=== PATIENT | female | born 1930 | race Asian ===

== ENCOUNTER 2018-03-13 08:24 | Day surgery (SDC) | payer MEDICARE, MEDICAID ==
[~2018-03-13] VITALS: Ht 149.9 cm; Wt 57.3 kg
[~2018-03-13 08:24] MED LIST: 0.9% SODIUM CHLORIDE 10 ML SYRINGE IVP PRN; LORA0.5T2 PO; METO-408 PO; SIMV20TA6 PO; VALS160T2 PO
[2018-03-13] MEDS ORDERED: CAND16TA2 PO (08:57)
[2018-03-13] MEDS ORDERED: METO-558 PO (08:57)
[2018-03-13] MEDS ORDERED: LINA5TAB PO (08:57)
[2018-03-13] MEDS ORDERED: ASPI81 PO (08:57)
[2018-03-13 09:15] LABS: CREATININE 0.96 mg/dL (0.60-1.30); POTASSIUM 4.1 mmol/L (3.5-5.1)
[2018-03-13] MEDS ORDERED: NITROGLYCERIN 400 MCG/SUBLINGUAL SPRAY 4.9 GM BOTTLE SL ONE (12:22)
[2018-03-13] MEDS ORDERED: METOPROLOL TARTRATE 5 MG/5 ML VIAL ONE (12:22)
[2018-03-13] MEDS ORDERED: IOVERSOL 350 MG/ML 100 ML VIAL ONE (12:41)
[2018-03-13] MEDS ORDERED: METOPROLOL TARTRATE 5 MG/5 ML VIAL IVP ONE (12:53)
== END 2018-03-13 13:35 | disposition home or self-care (01) ==
LOC: SURGERY 08:24 → EDSTATUS 10:00 → SURGERY 13:35
PROVIDERS: ATTEND Internal Medicine Cardiovascular Disease
DX: I34.8 Other nonrheumatic mitral valve disorders (principal); I25.89 Other forms of chronic ischemic heart disease; I20.9 Angina pectoris, unspecified; D18.09 Hemangioma of other sites; I11.0 Hypertensive heart disease with heart failure; I50.9 Heart failure, unspecified; M47.814 Spondylosis without myelopathy or radiculopathy, thoracic region; E78.00 Pure hypercholesterolemia, unspecified; Z95.0 Presence of cardiac pacemaker; Z79.82 Long term (current) use of aspirin; Z79.84 Long term (current) use of oral hypoglycemic drugs; Z88.1 Allergy status to other antibiotic agents; Z88.8 Allergy status to other drugs, medicaments and biological substances; Z79.899 Other long term (current) drug therapy
CPT/HCPCS: 36415; 75574; 80048; 93005; J3490; Q9967